=== PATIENT | female | born 1995 | race Caucasian/White ===

== ENCOUNTER 2021-01-12 16:33 | Emergency (ER) | payer BC ==
[~2021-01-12] VITALS: Ht 160 cm; Wt 68.2 kg
[2021-01-12 17:09] VITALS: BP 128/75
[2021-01-12 18:12] LABS: COLOR,URINE YELLOW (Yellow); GLUCOSE, URINE NEGATIVE (Neg); KETONES,URINE NEGATIVE (Neg); LEUKOCYTE ESTERASE ,URINE NEGATIVE (Neg); NITRITES, URINE POSITIVE (Neg); OCCULT BLOOD,URINE MODERATE (Neg); PROTEIN,URINE NEGATIVE (Neg); UROBILINOGEN,URINE 0.2 E.U/dL (0.2-1.0)
[2021-01-12 18:19] LABS: URINE HCG NEGATIVE (NEG)
[2021-01-12 18:26] LABS: UA COLLECTION TYPE CLN CATCH MIDSTREAM
[2021-01-12 18:27] LABS: BACTERIA,URINE 1+ /HPF (Neg); CLARITY,URINE SLIGHTLY CLOUDY (Clear); SQUAMOUS EPITHELIAL CELL,UR FEW /LPF (FEW); WBC,URINE 0-4 /HPF (0-4)
[2021-01-12] MEDS ORDERED: CEPH-585 PO (18:33)
== END 2021-01-12 19:59 | disposition home or self-care (01) ==
LOC: ER 16:34
DX: S39.012A Strain of muscle, fascia and tendon of lower back, initial encounter (principal); N39.0 Urinary tract infection, site not specified; F12.10 Cannabis abuse, uncomplicated; Z79.899 Other long term (current) drug therapy; X58.XXXA Exposure to other specified factors, initial encounter; Y93.89 Activity, other specified; Y92.89 Other specified places as the place of occurrence of the external cause; Y99.8 Other external cause status
CPT/HCPCS: 81001; 81025; 87077; 87088; 87186; 99283